=== PATIENT | female | born 1980 | race Two or more races ===

== ENCOUNTER 2022-04-13 21:24 | Inpatient (IN) | payer OTHER ==
[~2022-04-13] VITALS: Ht 162.6 cm; Wt 93.4 kg
[2022-04-13] MEDS ORDERED: PRENATAL TABLE1 EAC1 PO (21:31)
== END 2022-04-17 15:31 | disposition home or self-care (01) | DRG 833 ==
LOC: LDR 21:24
PROVIDERS: ADMIT Obstetrics & Gynecology Obstetrics; ATTEND Obstetrics & Gynecology Obstetrics
PROC: 4A1HXCZ Monitoring of Products of Conception, Cardiac Rate, External Approach (ICD-10-PCS; principal; 2022-04-13)
DX: O36.8330 Maternal care for abnormalities of the fetal heart rate or rhythm, third trimester, not applicable or unspecified (principal); Z3A.35 35 weeks gestation of pregnancy; Z20.822 Contact with and (suspected) exposure to COVID-19

== ENCOUNTER 2022-04-26 11:09 | Inpatient (IN) | payer OTHER ==
[~2022-04-26] VITALS: Ht 162.6 cm; Wt 93.4 kg
[~2022-04-26 11:09] MED LIST: PRENATAL TABLE1 EAC1 PO
== END 2022-05-03 16:59 | disposition home or self-care (01) | DRG 785 ==
LOC: LDR 11:09 → OB/GYN 11:09 → O/R 04-30 18:25 → OB/GYN 04-30 19:43
PROVIDERS: ADMIT Obstetrics & Gynecology Obstetrics; ATTEND Obstetrics & Gynecology Obstetrics
PROC: 4A1HXCZ Monitoring of Products of Conception, Cardiac Rate, External Approach (ICD-10-PCS; 2022-04-26)
PROC: 0UB70ZZ Excision of Bilateral Fallopian Tubes, Open Approach (ICD-10-PCS; 2022-04-30)
PROC: 10D00Z1 Extraction of Products of Conception, Low, Open Approach (ICD-10-PCS; principal; 2022-04-30 20:30)
DX: O13.4 Gestational [pregnancy-induced] hypertension without significant proteinuria, complicating childbirth (principal); Z3A.38 38 weeks gestation of pregnancy; Z37.0 Single live birth; Z20.822 Contact with and (suspected) exposure to COVID-19; Z30.2 Encounter for sterilization